=== PATIENT | female | born 1980 | race Caucasian/White ===

== ENCOUNTER 2018-12-18 12:45 | Inpatient (IN) | payer OTHER ==
[2018-12-18 16:51] VITALS: BMI 19.2
--- NOTE | 2018-12-18 17:31 | HP ---
COWS - Scale Resting Pulse: 0= [place] 80 or Below Sweatin= Chills/Flushing Restless Observation: 1= Difficult to Sit Still Pupil Size: 1= Pupils >than Normal Bone or Joint Aches: 2= Severe Diffuse Aches Runny Nose/ Eye Tearin= Nasal Congestion GI Upset > 30mins: 2= Nausea/Diarrhea Tremor Observation: 1= Tremor [place], Not Seen Yawning Observation: 1= 1-2x During Session Anxiety or Irritability: 2=Irritable/Anxious Goose Flesh Skin: 0=Smooth Skin COWS Score: 12 CIWA Score - Admission Criteria OASAS Guidelines: Admission for Medically Managed Detox: Requires at least one of the followin. CIWA greater than 12 2. Seizures within the past 24 hours 3. Delirium tremens within the past 24 hours 4. Hallucinations within the past 24 hours 5. Acute intervention needed for co occurring medical disorder 6. Acute intervention needed for co occurring psychiatric disorder 7. Severe withdrawal that cannot be handled at a lower level of care (continued vomiting, continued diarrhea, abnormal vital signs) requiring intravenous medication and/or fluids 8. Admission ROS [facility] Chief Complaint: WITHDRAWAL SYMPTOMS Allergies/Adverse Reactions: Allergies Allergy/AdvReac Type Severity Reaction Status Date / Time No Known Allergies Allergy Verified 12/18/18 17:27 History of Present Illness: 38 Y.O. WOMAN WITH A HISTORY OF HEROIN AND COCAINE DEPENDENCE IS HERE SEEKING DETOX. SHE REPORTS SHE COMPLETED DETOX AT [facility] 6 MONTHS AGO. DOES HAVE A SIGNIFICANT PERIOD OF ILLICIT DRUG ABSTINENCE. Exam Limitations: No Limitations - Ebola screening Have you traveled outside of the country in the last 21 days: No Have you had contact with anyone from an Ebola affected area: No Have you been sick,other than usual withdrawal symptoms: No Do you have a fever: No - Review of Systems Constitutional: Chills, Loss of Appetite, Unexplained wgt Loss EENT: reports: Double Vision, Tearing Respiratory: reports: No Symptoms reported Cardiac: reports: No Symptoms Reported GI: reports: Diarrhea, Nausea, Abdominal cramping : reports: No Symptoms Reported Musculoskeletal: reports: Back Pain Integumentary: reports: No Symptoms Reported Neuro: reports: Headache Endocrine: reports: No Symptoms Reported Hematology: reports: Anemia Psychiatric: reports: Anxious Other Systems: Reviewed and Negative Patient History - Patient Medical History Hx Anemia: Yes Hx Asthma: No Hx Chronic Obstructive Pulmonary Disease (COPD): No Hx Cancer: No Hx Cardiac Disorders: No Hx Congestive Heart Failure: No Hx Hypertension: No Hx Hypercholesterolemia: No Hx Pacemaker: No HX Cerebrovascular Accident: No Hx Seizures: No Hx Dementia: No Hx Diabetes: No Hx Gastrointestinal Disorders: No Hx Liver Disease: No Hx Genitourinary Disorders: No Hx Sexually Transmitted Disorders: No Hx Renal Disease (ESRD): No Hx Thyroid Disease: No Hx Human Immunodeficiency Virus (HIV): No (Negative but takes Truvada prophylactically) Hx Hepatitis C: No Hx Depression: Yes Hx Suicide Attempt: No Hx Bipolar Disorder: No Hx Schizophrenia: No - Patient Surgical History Past Surgical History: Yes Other Surgical History: Facial laceration repair Anesthesia Reaction: No - PPD History Previous Implant?: Yes Documented Results: Positive w/o proof PPD to be Administered?: Yes - Reproductive History Patient is a Female of Child Bearing Age (11 -55 yrs old): Yes Last Menstrual Period: 12/11/18 Patient : No - Smoking Cessation Smoking history: Current every day smoker Have you smoked in the past 12 months: Yes Aproximately how many cigarettes per day: 10 Initiated information on smoking cessation: Yes 'Breaking Loose' booklet given: 12/18/18 - Substance & Tx. History Hx Alcohol Use: No Hx Substance Use: Yes Substance Use Type: Cocaine, Heroin Hx Substance Use Treatment: Yes (Detox 6 months ago at [facility] ) - Substances Abused Heroin Route: Inhalation Frequency: Daily Amount used: 10 Age of first use: 37 Date of Last Use: 12/19/18 Cocaine Route: Inhalation Frequency: Daily Amount used: $100 Age of first use: 15 Date of Last Use: 12/18/18 Family Disease History - Family Disease History Family Disease History: [place]: Mother (Breast cancer- ) Admission Physical Exam BHS - Vital Signs Vital Signs: Vital Signs - 24 hr 12/18/18 16:49 Temperature 98.1 F Pulse Rate 60 Respiratory 18 Rate Blood Pressure 100/60 - Physical General Appearance: Yes: Disheveled, Thin, Irritable, Sweating, Anxious HEENTM: Yes: Hearing grossly Normal, Normocephalic, Normal Voice Respiratory: Yes: Chest Non-Tender, Lungs Clear, Normal Breath Sounds Neck: Yes: No masses,lesions,Nodules Breast: Yes: Breast Exam Deferred Cardiology: Yes: Regular Rhythm, Regular Rate Abdominal: Yes: Normal Bowel Sounds, Non Tender, Flat, Soft Genitourinary: Yes: Other (No complaints reported) Back: Yes: Normal Inspection, CVA Tenderness Musculoskeletal: Yes: full range of Motion, Gait Steady, Pelvis Stable Extremities: Yes: Normal Capillary Refill, Normal Inspection, Normal Range of Motion, Non-Tender Neurological: Yes: Fully Oriented, Alert, Normal Mood/Affect, Normal Response Integumentary: Yes: Normal Color, Dry, Warm Lymphatic: Yes: Within Normal Limits - Diagnostic (1) Uncomplicated opioid dependence Current Visit: Yes Status: Chronic (2) Cocaine dependence Current Visit: Yes Status: Chronic (3) Nicotine dependence Current Visit: Yes Status: Chronic Cleared for Admission [facility] - Detox or Rehab [facility] Level of Care: Medically Managed Detox Regimen/Protocol: Methadone [facility] Breath Alcohol Content Breath Alcohol Content: 0 Urine Pregancy Test - Result Urine Test Results: Negative - NO line present Urine Drug Screen - Results Drug Screen Negative: No Urine Drug Screen Results: LANG-Cocaine, OPI-Opiates, FEN-Fentanyl Inpatient Rehab Admission - Rehab Decision to Admit Inpatient rehab admission?: No
[2018-12-18] MEDS ORDERED: IBUPROFEN 400 MG TABLET (FP) PO PRN (17:37)
[2018-12-18] MEDS ORDERED: cloNIDine HCL 0.1 MG TABLET PO PRN (17:37)
[2018-12-18] MEDS ORDERED: NALOXONE HCL 0.4 MG/ML VIAL IVPUSH PRN (17:37)
[2018-12-18] MEDS ORDERED: ACETAMINOPHEN 325 MG TABLET (FP) PO PRN ×2 (17:37)
[2018-12-18] MEDS ORDERED: MAGNESIUM CITRATE 300 ML BOTTLE PO PRN (17:37)
[2018-12-18] MEDS ORDERED: MAGNESIUM HYDROX 2400MG/30ML ORAL SUSPENSION 30 ML CUP PO PRN (17:37)
[2018-12-18] MEDS ORDERED: MAG HYDROX/AL HYDROX/SIMETH 30 ML UNIT-DOSE CUP PO PRN (17:37)
[2018-12-18] MEDS ORDERED: BISMUTH SUBSALICYLATE 524 MG/30 ML UD PO PRN (17:37)
[2018-12-18] MEDS ORDERED: MENTHOL/PHENOL 1 EACH UD MM PRN (17:37)
[2018-12-18] MEDS ORDERED: MELATONIN 5 MG TABLETS PO PRN (17:37)
[2018-12-18] MEDS ORDERED: ONDANSETRON *ODT* 4 MG TABLET SL PRN (17:37)
[2018-12-18] MEDS ORDERED: hydrOXYzine PAMOATE 25 MG CAPSULE (FP) PO PRN (17:37)
[2018-12-18] MEDS ORDERED: NICOTINE POLACRILEX 2 MG GUM BUC PRN (17:37)
[2018-12-18] MEDS ORDERED: METHOCARBAMOL 500 MG TABLET PO PRN (17:37)
[2018-12-18] MEDS ORDERED: METHADONE HCL 10 MG TABLET (FOR DETOX USE ONLY) PO ONE ×2 (19:00→23:00)
[2018-12-18] MEDS: THIAMINE HCL 100 MG TABLET (FP) PO SCH (22:43)
[2018-12-19] MEDS ORDERED: METHADONE HCL 5 MG TABLET (FOR DETOX USE ONLY) PO ONE (10:00)
--- NOTE | 2018-12-19 10:05 | PN ---
BHS COWS - Scale Resting Pulse: 0= [place] 80 or Below Sweatin= Chills/Flushing Restless Observation: 0= Sits Still Pupil Size: 1= Pupils >than Normal Bone or Joint Aches: 1= Mild Discomfort Runny Nose/ Eye Tearin= Nasal Congestion GI Upset > 30mins: 1= Stomach Cramp Tremor Observation of Outstretched Hands: 1= Tremor [place], Not Seen Yawning Observation: 1= 1-2x During Session Anxiety or Irritability: 1=Feels Anxious/Irritable Goose Flesh Skin: 0=Smooth Skin COWS Score: 8 BHS Progress Note (SOAP) Subjective: reporting bp usually low encourage oral fluid Objective: 12/19/18 10:05 Vital Signs Temperature 98.3 F 12/19/18 09:33 Pulse Rate 69 12/19/18 09:33 Respiratory Rate 18 12/19/18 09:33 Blood Pressure 85/54 L 12/19/18 09:33 O2 Sat by Pulse Oximetry (%) 12/19/18 10:05 lab pending Assessment: 12/19/18 10:06 withdrawal sx Plan: continue detox
[2018-12-19] MEDS: NICOTINE 14 MG/24 HOURS TOPICAL PATCH TD SCH (11:03)
--- NOTE | 2018-12-19 11:03 | EKG ---
Test Reason : Blood Pressure : / mmHG Vent. Rate : 063 BPM Atrial Rate : 063 BPM P-R Int : 178 ms QRS Dur : 080 ms QT Int : 500 ms P-R-T Axes : 050 080 075 degrees QTc Int : 511 ms NORMAL SINUS RHYTHM PROLONGED QT ABNORMAL ECG NO PREVIOUS ECGS AVAILABLE Confirmed by KYLIE SHEPHRED MD ([id number]) on 12/19/2018 11:02:58 AM Referred By: Confirmed By:KYLIE SHEPHERD MD
[2018-12-19] MEDS: PRENATAL VITAMINS W/ FOLIC ACID TABLET (FP) PO SCH (11:04)
[2018-12-19] MEDS: clonazePAM 0.5 MG TABLET PO PRN (11:07)
[2018-12-19 11:15] LABS: HEMATOCRIT 37.3 % (32.4-45.2); HEMOGLOBIN 12.4 GM/dL (10.7-15.3); MCH 29.5 pg (25.7-33.7); MCHC 33.2 g/dl (32.0-36.0); MEAN CELL VOLUME 88.8 fl (80-96); MEAN PLT VOLUME 9.5 fl (7.5-11.1); PLATELET COUNT 204 K/MM3 (134-434); RDW 15.7 % (11.6-15.6); WHITE BLOOD COUNT 3.3 K/mm3 (4.0-10.0)
[2018-12-19] MEDS: EMTRICITABINE 200MG/TENOFOVIR 300MG PO SCH (11:37)
[2018-12-19 11:51] LABS: ALBUMIN 2.6 g/dl (3.4-5.0); ALK PHOS 44 U/L (45-117); ANION GAP 5 MMOL/L (8-16); BILIRUBIN,TOTAL 0.1 mg/dL (0.2-1); BLOOD UREA NITROGEN 17 mg/dL (7-18); CALCIUM 7.6 mg/dL (8.5-10.1); CHLORIDE 110 mmol/L (98-107); CO2 26 mmol/L (21-32); CREATININE 0.8 mg/dL (0.55-1.3); GLUCOSE,RANDOM 82 mg/dL (74-106); POTASSIUM 4.4 mmol/L (3.5-5.1); SGOT/AST 12 U/L (15-37); SGPT/ALT 12 U/L (13-61); SODIUM 141 mmol/L (136-145); TOT PROT 5.7 g/dl (6.4-8.2)
[2018-12-19 12:00] LABS: RPR NONREACTIVE (NONREACTIVE)
[2018-12-19] MEDS: THIAMINE HCL 100 MG TABLET (FP) PO SCH (23:28)
[2018-12-20] MEDS ORDERED: METHADONE HCL 10 MG TABLET (FOR DETOX USE ONLY) PO ONE (10:00)
[2018-12-20] MEDS: EMTRICITABINE 200MG/TENOFOVIR 300MG PO SCH (10:13)
[2018-12-20] MEDS: PRENATAL VITAMINS W/ FOLIC ACID TABLET (FP) PO SCH (10:13)
[2018-12-20] MEDS: NICOTINE 14 MG/24 HOURS TOPICAL PATCH TD SCH (10:13)
[2018-12-20] MEDS: clonazePAM 0.5 MG TABLET PO PRN (10:15)
--- NOTE | 2018-12-20 13:22 | PN ---
BHS CIWA - CIWA Score Muscle Tremors: 2 BHS Progress Note (SOAP) Subjective: pt states she is feeling fine- here on heroin detox protocol. O: Vital Signs - 24 hr 12/19/18 12/19/18 12/19/18 17:55 18:48 21:25 Temperature 98.3 F 98.4 F Pulse Rate 58 L 74 Respiratory 18 18 Rate Blood Pressure 78/52 L 82/51 L 84/53 L 12/20/18 12/20/18 12/20/18 00:30 03:30 06:35 Temperature 98.1 F Pulse Rate 64 Respiratory 18 18 18 Rate Blood Pressure 100/56 L 12/20/18 09:44 Temperature 99.2 F Pulse Rate 71 Respiratory 16 Rate Blood Pressure 86/49 L Laboratory Tests 12/19/18 12/19/18 12/19/18 07:30 07:30 07:30 WBC 3.3 L RBC 4.20 Hgb 12.4 Hct 37.3 MCV 88.8 MCH 29.5 MCHC 33.2 RDW 15.7 H Plt Count 204 MPV 9.5 Sodium 141 Potassium 4.4 Chloride 110 H Carbon Dioxide 26 Anion Gap 5 L BUN 17 Creatinine 0.8 Creat Clearance w eGFR 80.27 Random Glucose 82 Calcium 7.6 L Total Bilirubin 0.1 L AST 12 L ALT 12 L Alkaline Phosphatase 44 L Total Protein 5.7 L Albumin 2.6 L RPR Titer Nonreactive HIV 1&2 Antibody Screen Negative HIV P24 Antigen Negative a/p: continue methadone detox protocol prn meds for withdrawal Sx
[2018-12-20] MEDS: THIAMINE HCL 100 MG TABLET (FP) PO SCH (22:25)
[2018-12-21] MEDS ORDERED: METHADONE HCL 5 MG TABLET (FOR DETOX USE ONLY) PO ONE (06:00)
[2018-12-21] MEDS: NICOTINE 14 MG/24 HOURS TOPICAL PATCH TD SCH (10:32)
[2018-12-21] MEDS: PRENATAL VITAMINS W/ FOLIC ACID TABLET (FP) PO SCH (10:32)
[2018-12-21] MEDS: EMTRICITABINE 200MG/TENOFOVIR 300MG PO SCH (10:32)
--- NOTE | 2018-12-21 11:54 | PN ---
[facility] Progress Note Note: Vital Signs Temperature 96.4 F L 12/21/18 09:45 Pulse Rate 69 12/21/18 09:45 Respiratory Rate 18 12/21/18 09:45 Blood Pressure 92/67 12/21/18 09:45 O2 Sat by Pulse Oximetry (%) Laboratory Last Values WBC 3.3 K/mm3 (4.0-10.0) L 12/19/18 07:30 RBC 4.20 M/mm3 (3.60-5.2) 12/19/18 07:30 Hgb 12.4 GM/dL (10.7-15.3) 12/19/18 07:30 Hct 37.3 % (32.4-45.2) 12/19/18 07:30 MCV 88.8 fl (80-96) 12/19/18 07:30 MCH 29.5 pg (25.7-33.7) 12/19/18 07:30 MCHC 33.2 g/dl (32.0-36.0) 12/19/18 07:30 RDW 15.7 % (11.6-15.6) H 12/19/18 07:30 Plt Count 204 K/MM3 (134-434) 12/19/18 07:30 MPV 9.5 fl (7.5-11.1) 12/19/18 07:30 Sodium 141 mmol/L (136-145) 12/19/18 07:30 Potassium 4.4 mmol/L (3.5-5.1) 12/19/18 07:30 Chloride 110 mmol/L (98-107) H 12/19/18 07:30 Carbon Dioxide 26 mmol/L (21-32) 12/19/18 07:30 Anion Gap 5 MMOL/L (8-16) L 12/19/18 07:30 BUN 17 mg/dL (7-18) 12/19/18 07:30 Creatinine 0.8 mg/dL (0.55-1.3) 12/19/18 07:30 Creat Clearance w eGFR 80.27 (>60) 12/19/18 07:30 Random Glucose 82 mg/dL (74-106) 12/19/18 07:30 Calcium 7.6 mg/dL (8.5-10.1) L 12/19/18 07:30 Total Bilirubin 0.1 mg/dL (0.2-1) L 12/19/18 07:30 AST 12 U/L (15-37) L 12/19/18 07:30 ALT 12 U/L (13-61) L 12/19/18 07:30 Alkaline Phosphatase 44 U/L (45-117) L 12/19/18 07:30 Total Protein 5.7 g/dl (6.4-8.2) L 12/19/18 07:30 Albumin 2.6 g/dl (3.4-5.0) L 12/19/18 07:30 RPR Titer Nonreactive (NONREACTIVE) 12/19/18 07:30 HIV 1&2 Antibody Screen Negative 12/19/18 07:30 HIV P24 Antigen Negative 12/19/18 07:30 c/o of diarrhea, nasal congestion and interrupted sleep Patient Aox3 in no acutes distress Abd non-tender full ROM ambulating in the unit opioid withdrawal sx Increase PO fluids continue to monitor
[2018-12-21 17:35] VITALS: BP 89/56; PULSE 95; TEMP 99.3
--- NOTE | 2018-12-21 18:58 | PN ---
[facility] Progress Note Note: Notified by RN, Yuli, that patient requested to sign out AMA. Upon arrival to unit, Patient had signed papers and left without seeing provider. Vital Signs Temperature 99.3 F 12/21/18 17:35 Pulse Rate 95 H 12/21/18 17:35 Respiratory Rate 18 12/21/18 17:35 Blood Pressure 89/56 L 12/21/18 17:35 O2 Sat by Pulse Oximetry (%)
--- NOTE | 2018-12-21 18:59 | DS ---
[facility] Detox Discharge Summary Admission Date: 12/18/18 Discharge Date: 12/21/18 - History Present History: Cocaine Dependence, Opioid Dependence - Physical Exam Results Vital Signs: Vital Signs Temperature 99.3 F 12/21/18 17:35 Pulse Rate 95 H 12/21/18 17:35 Respiratory Rate 18 12/21/18 17:35 Blood Pressure 89/56 L 12/21/18 17:35 O2 Sat by Pulse Oximetry (%) - Medication Discharge Medications: Ambulatory Orders Emtricitabine/Tenofovir [Truvada] 1 tab PO DAILY 12/18/18 - AMA Did Patient Leave Against Medical Advice: Yes
== END 2018-12-21 18:19 | disposition home or self-care (01) | DRG 773 ==
LOC: YASAS 12:45 → Y3N 18:37
PROVIDERS: ADMIT Surgery; ATTEND Surgery
PROC: HZ2ZZZZ Detoxification Services for Substance Abuse Treatment (ICD-10-PCS; principal; 2018-12-18)
DX: F11.23 Opioid dependence with withdrawal (principal); F14.20 Cocaine dependence, uncomplicated; F17.210 Nicotine dependence, cigarettes, uncomplicated; Z86.2 Personal history of diseases of the blood and blood-forming organs and certain disorders involving the immune mechanism
CPT/HCPCS: 36415; 80053; 85027; 86593; 87389; 93005; 93010

== ENCOUNTER 2021-05-11 13:30 | Inpatient (IN) | payer OTHER ==
[2021-05-11 14:31] VITALS: BMI 21.0
[2021-05-11] MEDS ORDERED: NICOTINE 10 MG CARTRIDGE (INHALER) IH PRN (16:23)
[2021-05-11] MEDS ORDERED: MAGNESIUM CITRATE 300 ML BOTTLE PO PRN (16:23)
[2021-05-11] MEDS ORDERED: MAGNESIUM HYDROX 2400MG/30ML ORAL SUSPENSION 30 ML CUP PO PRN (16:23)
[2021-05-11] MEDS ORDERED: NALOXONE HCL 0.4 MG/ML VIAL IM PRN (16:23)
[2021-05-11] MEDS ORDERED: BISMUTH SUBSALICYLATE 524 MG/30 ML PO PRN (16:23)
[2021-05-11] MEDS ORDERED: MENTHOL/PHENOL 1 EACH UD MM PRN (16:23)
[2021-05-11] MEDS ORDERED: methaDONE HCL 10 MG TABLET (FOR DETOX USE ONLY) PO ONE (16:23)
[2021-05-11] MEDS ORDERED: ACETAMINOPHEN 325 MG TABLET (FP) PO PRN ×2 (16:23)
[2021-05-11] MEDS ORDERED: clonazePAM 0.5 MG ODT TABLETS SL PRN (16:23)
[2021-05-11] MEDS ORDERED: MAG HYDROX/AL HYDROX/SIMETH 30 ML UNIT-DOSE CUP PO PRN (16:23)
[2021-05-11] MEDS ORDERED: cloNIDine HCL 0.1 MG TABLET PO PRN (16:23)
[2021-05-11] MEDS ORDERED: diazePAM 5 MG TABLET PO PRN (16:23)
[2021-05-11] MEDS ORDERED: methaDONE HCL 10 MG TABLET (FOR DETOX USE ONLY) ONE (18:04)
[2021-05-11] MEDS ORDERED: diazePAM 5 MG TABLET ONE ×2 (18:04→23:01)
[2021-05-11] MEDS: diazePAM 5 MG TABLET PO SCH ×2 (18:07→23:17)
[2021-05-11] MEDS: MELATONIN 5 MG TABLETS PO SCH (23:16)
[2021-05-11] MEDS: THIAMINE HCL 100 MG TABLET (FP) PO SCH (23:17)
[2021-05-11] MEDS: P-EPHED 60MG/TRIPROLIDI 2.5MG TABLET PO PRN (23:17)
[2021-05-12] MEDS ORDERED: IBUPROFEN 400 MG TABLET (FP) PO ONE (05:38)
[2021-05-12] MEDS ORDERED: diazePAM 5 MG TABLET ONE (05:38)
[2021-05-12] MEDS: IBUPROFEN 400 MG TABLET (FP) PO PRN (05:45)
[2021-05-12] MEDS: diazePAM 5 MG TABLET PO SCH ×4 (05:45→22:02)
[2021-05-12] MEDS ORDERED: methaDONE HCL 10 MG TABLET (FOR DETOX USE ONLY) ONE (09:44)
[2021-05-12] MEDS ORDERED: PRENATAL VITAMINS W/ FOLIC ACID TABLET (FP) PO SCH (10:00)
[2021-05-12] MEDS ORDERED: ELVITEG/COB/EMTRI/TENOF (GENVOYA) TABLET (NF) PO SCH ×2 (10:00→10:59)
[2021-05-12] MEDS: METHOCARBAMOL 500 MG TABLET PO PRN (10:06)
[2021-05-12 12:06] LABS: HEMATOCRIT 37.3 % (32.4-45.2); HEMOGLOBIN 12.4 GM/dL (10.7-15.3); MCH 28.6 pg (25.7-33.7); MCHC 33.3 g/dl (32.0-36.0); MEAN CELL VOLUME 85.8 fl (80-96); MEAN PLT VOLUME 10.2 fl (7.5-11.1); PLATELET COUNT 160 10^3/uL (134-434); RBC 4.35 M/mm3 (3.60-5.2); RDW 14.8 % (11.6-15.6); WHITE BLOOD COUNT 2.9 K/mm3 (4.0-10.0)
[2021-05-12 12:13] LABS: ALBUMIN 3.7 g/dl (3.4-5.0); CALCIUM 8.8 mg/dL (8.5-10.1)
[2021-05-12 12:14] LABS: BLOOD UREA NITROGEN 15.9 mg/dL (7-18); CREATININE 0.8 mg/dL (0.55-1.3)
[2021-05-12 12:16] LABS: BILIRUBIN,TOTAL 0.5 mg/dL (0.2-1); TOT PROT 7.4 g/dl (6.4-8.2)
[2021-05-12] MEDS ORDERED: MASKS NR ONE (22:01)
[2021-05-12] MEDS: THIAMINE HCL 100 MG TABLET (FP) PO SCH (22:02)
[2021-05-12] MEDS: P-EPHED 60MG/TRIPROLIDI 2.5MG TABLET PO PRN (22:03)
[2021-05-12] MEDS: MELATONIN 5 MG TABLETS PO SCH (22:03)
[2021-05-12 23:39] VITALS: PULSE 78
[2021-05-13] MEDS: METHOCARBAMOL 500 MG TABLET PO PRN (04:39)
[2021-05-13] MEDS: IBUPROFEN 400 MG TABLET (FP) PO PRN (04:39)
[2021-05-13] MEDS ORDERED: diazePAM 5 MG TABLET PO SCH (06:00)
[2021-05-13 06:43] VITALS: BP 122/85; TEMP 97.8
[2021-05-13] MEDS ORDERED: methaDONE HCL 10 MG TABLET (FOR DETOX USE ONLY) PO ONE (10:00)
[2021-05-14] MEDS ORDERED: diazePAM 5 MG TABLET PO SCH (06:00)
[2021-05-14] MEDS ORDERED: methaDONE HCL 10 MG TABLET (FOR DETOX USE ONLY) PO ONE (10:00)
[2021-05-15] MEDS ORDERED: diazePAM 5 MG TABLET PO ONE (06:00)
[2021-05-15] MEDS ORDERED: methaDONE HCL 10 MG TABLET (FOR DETOX USE ONLY) PO ONE (10:00)
[2021-05-16] MEDS ORDERED: methaDONE HCL 10 MG TABLET (FOR DETOX USE ONLY) PO ONE (10:00)
== END 2021-05-13 07:43 | disposition left against medical advice (07) | DRG 770 ==
LOC: YASAS 13:30 → Y6N 05-12 08:52
PROVIDERS: ADMIT Allergy & Immunology; ATTEND Allergy & Immunology
PROC: HZ2ZZZZ Detoxification Services for Substance Abuse Treatment (ICD-10-PCS; principal; 2021-05-12)
DX: F11.23 Opioid dependence with withdrawal (principal); F10.230 Alcohol dependence with withdrawal, uncomplicated; F14.20 Cocaine dependence, uncomplicated; F17.210 Nicotine dependence, cigarettes, uncomplicated; Z21 Asymptomatic human immunodeficiency virus [HIV] infection status; E78.5 Hyperlipidemia, unspecified; R94.31 Abnormal electrocardiogram [ECG] [EKG]; Z56.0 Unemployment, unspecified
CPT/HCPCS: 36415; 80053; 81025; 85027; 86780; 93005; 93010; C9803; U0003; U0005